=== PATIENT | male | born 1950 | race Caucasian/White ===

== ENCOUNTER 2018-03-28 09:34 | Outpatient (CLI) | payer OTHER ==
--- NOTE | 2018-03-28 11:20 | ULT ---
HEPATIC ULTRASOUND WITH DOPPLER: (paul scale, color flow, and spectral Doppler) History Elevated LFTs. FINDINGS: The liver demonstrates increased echogenicity concerning for fatty infiltration. No focal mass or in trahepatic ductal dilatation is seen. There are echogenic foci in the spleen consistent with granulo mas. The spleen measures 10 cm in length. The patient is post cholecystectomy. The common duct brianna sures 5 mm in diameter. The pancreas is not well visualized due to overlying bowel gas. No free flu id is seen. There is normal flow and spectral waveforms of the hepatic, portal, and splenic vasculature. IMPRESSION: 1. Fatty liver. 2. Splenic granulomas. 3. Status post cholecystectomy. POS: OFF
== END 2018-03-28 09:35 | disposition home or self-care (01) ==
LOC: BICULT 09:34
PROVIDERS: ATTEND Physician Assistant Medical
DX: R74.8 Abnormal levels of other serum enzymes (principal); K76.0 Fatty (change of) liver, not elsewhere classified; D73.89 Other diseases of spleen; Z90.49 Acquired absence of other specified parts of digestive tract
CPT/HCPCS: 76705

== ENCOUNTER 2018-11-12 13:11 | Outpatient (CLI) | payer MEDICARE ==
[2018-11-12 15:27] LABS: Hemoglobin 14.7 g/dL (14.0-18.0); Mean Corpuscular Hemoglobin 33.6 pg (27.0-31.0); Mean Corpuscular Volume 98.8 fL (78.0-98.0); Mean Platelet Volume 8.4 fL (7.4-10.4); Platelet Count 176 thou/uL (130-400); RBC Distribution Width 12.4 % (11.5-14.5); Red Blood Cell (RBC) Count 4.38 mill/uL (4.70-6.10); White Blood Cell (WBC) Count 8.1 thou/uL (4.8-10.8)
[2018-11-12 15:33] LABS: PTT 29.2 SEC (22.9-36.1); Prothrombin Time 13.1 SEC (12.0-14.7)
[2018-11-12 15:46] LABS: ALT (SGPT) 59 U/L (8-55); AST (SGOT) 58 U/L (5-34); Alkaline Phosphatase 75 U/L (40-150); Anion Gap 12 mmol/L (10-20); BUN (Urea Nitrogen) 18 mg/dL (8.4-25.7); Bilirubin, Total 0.6 mg/dL (0.2-1.2); Calc. Creatinine Clearance 0 mL/min (70-130); Calcium 9.8 mg/dL (7.8-10.44); Carbon Dioxide 26 mmol/L (23-31); Chloride 103 mmol/L (98-107); Estimated GFR-MDRD 71; Globulin 3.6 g/dL (2.4-3.5); Glucose 131 mg/dL (80-115); Potassium 3.7 mmol/L (3.5-5.1); Protein, Total 7.6 g/dL (5.8-8.1); Sodium 137 mmol/L (136-145)
== END 2018-11-12 13:12 | disposition home or self-care (01) ==
LOC: LABBT 13:11
PROVIDERS: ATTEND Internal Medicine Cardiovascular Disease
DX: Z01.818 Encounter for other preprocedural examination (principal); I20.9 Angina pectoris, unspecified
CPT/HCPCS: 80053; 85027; 85610; 85730; 93005; 93010

== ENCOUNTER 2018-11-18 05:41 | Inpatient (IN) | payer MEDICARE ==
[2018-11-18] MEDS ORDERED: Diazepam 5 MG TAB ONE (06:08)
[2018-11-18] MEDS ORDERED: Lidocaine 1% (PF) 30 ML VIAL ONE (06:37)
[2018-11-18] MEDS ORDERED: Fentanyl 100 MCG/2 ML VIAL ONE (07:12)
[2018-11-18] MEDS ORDERED: Midazolam HCl 2 mg/2 ml Vial ONE (07:12)
[2018-11-18] MEDS ORDERED: Finasteride 5 MG TAB PO SCH (09:00)
[2018-11-18] MEDS ORDERED: POTASSIUM 99 MG PO SCH (09:00)
[2018-11-18] MEDS ORDERED: predniSONE 5 MG TAB PO PRN (09:02)
[2018-11-18] MEDS ORDERED: Fluticasone Propionate Nasal Spray 16 gm Bottle NASAL PRN (09:06)
[2018-11-18] MEDS ORDERED: clonazePAM 0.5 MG TAB PO PRN (09:11)
[2018-11-18] MEDS ORDERED: SODIUM CHLORIDE 0.9% IVPB SCH (09:15)
[2018-11-18] MEDS ORDERED: INFLIXIMAB IVPB SCH (09:15)
[2018-11-18] MEDS ORDERED: Iopamidol 370 76% 100 ML VIAL ONE (10:00)
[2018-11-18] MEDS ORDERED: Diazepam 5 MG TAB PO PRN (10:38)
[2018-11-18] MEDS ORDERED: Communication Order-Pharmacy FS SCH (10:38)
--- NOTE | 2018-11-18 11:24 | RAD ---
Exam: Chest one view HISTORY:Preoperative assessment Comparison: 07/27/2006 FINDINGS: Lungs: Mild asymmetric opacity at the right apex.Cardiac silhouette:Accentuated by technique. Pulmonary vessels: Mild central prominence. Pleural Spaces: Clear Pneumothorax: None Osseous abnormalities: None of acuity. IMPRESSION: Mild asymmetric opacity at the right lung apex. Underlying parenchymal disease is not excluded. Recom mend follow-up with 2 view chest series. Mild prominence of central pulmonary vasculature. Correlate with fluid status.
--- NOTE | 2018-11-18 11:24 | CON ---
DATE OF CONSULTATION: 11/18/2018 HISTORY OF PRESENT ILLNESS: Mr. Avina is a 68-year-old gentleman, who was brought in for elective cardiac catheterization. He says he has had shortness of breath and subsequent chest pain with minimal activity recently. He had a stress test performed, which was positive and this led to cardiac catheterization today. Catheterization shows a 90% left main stenosis. His ejection fraction is preserved at approximately 70%. I have been asked to see him and discuss coronary artery bypass grafting. PAST MEDICAL HISTORY: 1. Ulcerative colitis - the patient takes Remicade and has had no recent flares. 2. Arthritis. 3. Hemochromatosis. 4. Coronary artery disease. 5. Hypertension. 6. Dyslipidemia. PAST SURGICAL HISTORY: As noted. ALLERGIES: PENICILLIN. SOCIAL HISTORY: He does not use tobacco. He is and retired. PHYSICAL EXAMINATION: VITAL SIGNS: Height is 6 feet, weight is 290 pounds. BSA is 2.59. Heart rate is 70 and regular. Blood pressure is 138/72. HEENT: Sclerae are nonicteric. Pupils are equal and round bilaterally. NECK: Supple without bruit. CHEST: Clear bilaterally. HEART: Rhythm is regular without murmur. ABDOMEN: Soft and nontender without mass. EXTREMITIES: No cyanosis, clubbing, or edema. VASCULAR: He has palpable carotid, radial, femoral, dorsalis pedis, and posterior tibial pulses bilaterally. VENOUS: There are no venous varicosities or venous stasis changes. PSYCHIATRIC: The patient is awake, alert, and oriented to person, place, and time. LABORATORY DATA: Of note, hemoglobin is 14.7, platelet count is 176,000. Potassium is 3.7, creatinine is 1.04. ASSESSMENT AND PLAN: This is a pleasant 68-year-old gentleman with left main stenosis. He has bypassable left anterior descending and two obtuse marginal branches. Risks, benefits, and options to coronary artery bypass grafting have been discussed in detail with he and his and they are agreeable to proceed tomorrow. Job ID: [id number]
[2018-11-18] MEDS ORDERED: Nitroglycerin 0.4 MG TAB (25 Tab Bottle) SL PRN (15:42)
[2018-11-18] MEDS ORDERED: Acetaminophen/Codeine 30-300mg Tablet PO PRN ×2 (15:42)
[2018-11-18] MEDS ORDERED: Sodium Chloride 0.9% 1,000 ML IV SCH (15:42)
[2018-11-18] MEDS ORDERED: Sodium Chloride 0.9% 200 ML IV PRN (15:42)
[2018-11-18] MEDS ORDERED: Simvastatin 5 MG TAB PO SCH (21:00)
[2018-11-18] MEDS ORDERED: Atenolol 25 MG TAB PO SCH (21:00)
[2018-11-18] MEDS: Finasteride 5 MG TAB PO SCH (21:10)
[2018-11-18] MEDS: sulfaSALAzine 500 MG TAB PO SCH (21:39)
[2018-11-19] MEDS: Levothyroxine 175 MCG TAB PO SCH (02:07)
[2018-11-19] MEDS ORDERED: Nitroglycerin 50 MG/250 ML BOT 250 ML ONE (06:21)
[2018-11-19] MEDS ORDERED: Norepinephrine 4 MG/4 ML VIAL ONE (06:21)
[2018-11-19] MEDS ORDERED: Fentanyl 250 MCG/5 ML VIAL ONE (06:22)
[2018-11-19] MEDS ORDERED: Albumin 5% 500 ML ONE (06:34)
[2018-11-19] MEDS ORDERED: Heparin 10,000 UNITS/1 ML VIAL 30,000 UNITS in Sodium Chloride 0.9% 1,000 ML FS SCH (07:00)
[2018-11-19] MEDS ORDERED: Midazolam HCl 2 mg/2 ml Vial ONE (07:05)
[2018-11-19] MEDS ORDERED: Adenosine 6 MG/2 ML VIAL ONE (07:05)
[2018-11-19] MEDS ORDERED: Levofloxacin 500 mg/D5W 100 ml Premix Bag ONE (07:19)
[2018-11-19] MEDS ORDERED: Clindamycin/D5W 900 mg/50 ml Premix Bag ONE (07:19)
[2018-11-19] MEDS ORDERED: Spironolactone 25 MG TAB PO SCH (08:00)
[2018-11-19] MEDS ORDERED: Hydrochlorothiazide 25 MG TAB PO SCH (09:00)
[2018-11-19] MEDS ORDERED: Loratadine 10 MG TAB PO SCH (09:00)
[2018-11-19] MEDS ORDERED: Multivit, Therapeutic 1 TAB PO SCH (09:00)
[2018-11-19] MEDS ORDERED: Losartan 25 MG TAB PO SCH (09:00)
[2018-11-19] MEDS ORDERED: Aspirin Chewable 81 MG TAB PO SCH (09:00)
[2018-11-19] MEDS ORDERED: Insulin Regular 300 UNITS/3 ML VIAL ONE (09:17)
[2018-11-19] MEDS ORDERED: Bupivacaine HCl 0.5%/Epinephrine 1:200,000/PF 30 ml Vial ONE (11:09)
[2018-11-19] MEDS ORDERED: Dexamethasone 4 mg/ml Vial ONE (11:09)
[2018-11-19] MEDS ORDERED: Propofol 500 MG/50 ML VIAL ONE (11:46)
[2018-11-19] MEDS ORDERED: Vecuronium 10 MG VIAL ONE (11:46)
[2018-11-19] MEDS ORDERED: Norepinephrine 8 MG/0.9% NS 250 ML IVPB PRN (12:39)
[2018-11-19] MEDS ORDERED: Guaifenesin DM 100-10/5 ML UDCUP PO PRN (12:39)
[2018-11-19] MEDS ORDERED: Ondansetron PF 4 MG/2 ML Vial IVP PRN (12:39)
[2018-11-19] MEDS ORDERED: Hetastarch 6% 500 ML 500 ML IVPB PRN (12:39)
[2018-11-19] MEDS ORDERED: Promethazine HCl 25 MG/ML VIAL IM PRN (12:39)
[2018-11-19] MEDS ORDERED: Mag-Al 1200 mg/1200 mg/30 ML UDCUP PO PRN (12:39)
[2018-11-19] MEDS ORDERED: Magnesium 2 GM/50 ML 2 GM in Premix Bag 1 BAG IVPB SCH (12:39)
[2018-11-19] MEDS ORDERED: Nitroglycerin 50 MG/250 ML BOT 250 ML IVPB PRN (12:39)
[2018-11-19] MEDS ORDERED: Acetaminophen 325 MG TAB PO PRN (12:39)
[2018-11-19] MEDS ORDERED: Bisacodyl 10 MG SUPP PR PRN (12:39)
[2018-11-19] MEDS ORDERED: Post-Op Insulin Drip Protocol IVPB ONE (12:39)
[2018-11-19] MEDS ORDERED: Bisacodyl 5 MG TAB PO PRN (12:39)
[2018-11-19] MEDS ORDERED: Fentanyl 100 MCG/2 ML VIAL SLOW IVP PRN (12:39)
[2018-11-19] MEDS ORDERED: hydrALAZINE 20 MG/ML VIAL SLOW IVP PRN (12:39)
[2018-11-19] MEDS ORDERED: D5 1/2 NS w/20 mEq KCL 1,000 ML IV SCH (12:39)
[2018-11-19] MEDS ORDERED: D5 1/2 NS w/20 mEq KCL 1,000 ML ONE (12:42)
[2018-11-19] MEDS ORDERED: Dextrose 50% Abboject 50 ML SYRINGE SLOW IVP PRN (12:44)
[2018-11-19] MEDS ORDERED: Dextrose 5% in Water 1,000 ML IV PRN (12:44)
[2018-11-19] MEDS ORDERED: Insulin Regular 300 UNITS/3 ML VIAL SC PRN (12:44)
[2018-11-19] MEDS ORDERED: HUMULIN R 100 UNITS in Sodium Chloride 0.9% 100 ML IVPB SCH (12:44)
[2018-11-19] MEDS: sulfaSALAzine 500 MG TAB PO SCH ×2 (12:52→21:15)
[2018-11-19 12:57] LABS: Actual Bicarbonate (HCO3a) 21.9 mEq/L (22-28); Base Excess (BEa) -2.6 mEq/L (-2.0 to +3.0); CO2 Tension 37.3 mmHg (35.0-45.0); Calcium, Ionized 1.09 mmol/L (1.12-1.30); Carboxyhemoglobin (COHb) 1.2 gm% (0.0-3.0); Hemoglobin (Hb) 13.4 g/dL (14.0-18.0); O2 Tension (PaO2) 109.1 mmHg (> 80.0); Potassium - ABG Lab 3.57 mmol/L (3.70-5.30); pH, Arterial 7.39 (7.35-7.45)
[2018-11-19 12:58] LABS: #Basophils 0.1 thou/uL (0.0-0.2); #Eosinphils 0.1 thou/uL (0.0-0.7); #Lymphocytes 1.5 thou/uL (1.20-3.40); #Monocytes 1.2 thou/uL (0.11-0.59); %Basophils 0.6 % (0.0-1.0); %Eosinophils 0.7 % (0.0-10.0); %Lymphocytes 11.4 % (21.0-51.0); %Monocytes 9.6 % (0.0-10.0); %Neutrophils 77.8 % (42.0-75.0); Hemoglobin 12.8 g/dL (14.0-18.0); Mean Corpuscular HGB CONC 36.3 g/dL (32.0-36.0); Mean Corpuscular Hemoglobin 35.3 pg (27.0-31.0); Mean Corpuscular Volume 97.4 fL (78.0-98.0); Mean Platelet Volume 8.3 fL (7.4-10.4); Platelet Count 141 thou/uL (130-400); Red Blood Cell (RBC) Count 3.64 mill/uL (4.70-6.10); White Blood Cell (WBC) Count 12.9 thou/uL (4.8-10.8)
[2018-11-19 13:00] LABS: INR-International Normal Ratio 1.3; PTT 30.4 SEC (22.9-36.1); Prothrombin Time 16.5 SEC (12.0-14.7)
[2018-11-19] MEDS: Clindamycin/D5W 900 MG in Premix Bag 1 BAG IVPB SCH ×3 (13:01→23:18)
[2018-11-19] MEDS: Ketorolac Tromethamine 30 MG/ML VIAL IVP SCH ×3 (13:01→23:16)
[2018-11-19 13:02] LABS: ALV-art Gradient 200.775 (0-20); Puncture Site LINE
[2018-11-19 13:12] LABS: Anion Gap 13 mmol/L (10-20); BUN (Urea Nitrogen) 15 mg/dL (8.4-25.7); Calc. Creatinine Clearance 138 mL/min (70-130); Calcium 8.5 mg/dL (7.8-10.44); Carbon Dioxide 22 mmol/L (23-31); Chloride 110 mmol/L (98-107); Estimated GFR-MDRD 81; Glucose 134 mg/dL (80-115); Potassium 3.5 mmol/L (3.5-5.1); Sodium 141 mmol/L (136-145)
[2018-11-19] MEDS ORDERED: Morphine 2 MG/ML SYRINGE SLOW IVP PRN (13:15)
[2018-11-19] MEDS: Potassium Chloride 20 MEQ/100 ML PREMIX BAG IVPB PRN (13:19)
--- NOTE | 2018-11-19 13:26 | RAD ---
Exam: Chest one view HISTORY:Status post open heart surgery Comparison: 11/18/2018 FINDINGS: Cardiac silhouette:Enlarged Lines and tubes: Right-sided subclavian central venous catheter terminates in the region of the right atrium. Endotracheal tube terminates just beyond the level of clavicles. There are 2 mediastinal drainage catheters. Sternotomy wires are noted Aorta: Atherosclerosis of the aortic knob Pulmonary vessels: Normal Costophrenic angles: Small left-sided pleural effusion. LUNGS: Bibasilar opacities, left greater than right likely due to atelectasis Pneumothorax: Left sided chest tube. No pneumothorax. Osseous abnormalities: None IMPRESSION: Findings compatible with recent open heart surgery.
[2018-11-19 16:03] VITALS: BMI 39.7
--- NOTE | 2018-11-19 16:16 | OP ---
DATE OF PROCEDURE: 11/19/2018 PREOPERATIVE DIAGNOSES: Coronary artery disease/obesity/hypertension/dyslipidemia/ulcerative colitis/hemochromatosis. POSTOPERATIVE DIAGNOSES: Coronary artery disease/obesity/hypertension/dyslipidemia/ulcerative colitis/hemochromatosis. PROCEDURES PERFORMED: Coronary artery bypass grafting x3. 1. Left internal mammary artery mid LAD - good conduit and target. 2. Reverse saphenous vein to 1.0 mm diagonal - good conduit and small target. 3. Reverse saphenous vein to 1.5 mm OM1 - good conduit and target. ANESTHESIA: General endotracheal - Dr. Scott Grayson. PUMP TIME: 58 minutes. CROSS-CLAMP TIME: 42 minutes. LOW CORE TEMPERATURE: 34 degrees Celsius. RESIDENTIAL BUILDER: Sunita Galarza. DRAINS: 24-Indonesian chest tube x2. DRIPS: Levophed at 5 mcg. TRANSFUSIONS: None. DESCRIPTION OF PROCEDURE: After operative consent was obtained, the patient was brought to the operating room, placed in supine position on the operating room table. Appropriate central line and monitors were placed and general endotracheal anesthesia was induced. Chest, abdomen, and legs were prepped and draped in usual sterile fashion. Greater saphenous vein was harvested from the left thigh utilizing endoscopic technique. Wound was irrigated and closed in layers. Median sternotomy was performed. Left internal mammary artery was harvested as a pedicle graft. The patient was systemically heparinized. Distal pedicle was divided and infused with papaverine. Thymic fat and pericardium were divided with electrocautery. Pericardial stay sutures were placed. Aortic and atrial cannulation was performed. After adequate heparinization, retrograde prime was performed and the patient was placed on cardiopulmonary bypass. Distal targets were marked. The aortic cross-clamp was applied and antegrade sanguinous cardioplegic arrest was obtained. 1 L of antegrade cold [place] cardioplegia was given. Topical cold solution was used. Reverse saphenous vein was anastomosed to the OM in end-to-side fashion with running 7-0 Prolene suture. Anastomosis was tested and was hemostatic. Reverse saphenous vein was anastomosed to the diagonal in end-to-side fashion with running 7-0 prolene suture. Anastomosis was tested and it was hemostatic. The mammary artery was brought through a window in the pericardium and anastomosed to the mid LAD in an end-to-side fashion with running 7-0 Prolene suture. On release of mammary clamps, good hooding of the anastomosis and good distal flow. Pedicle was secured with interrupted 6-0 Prolene suture. The saphenous vein to the OM was then anastomosed to a punch site in the aorta with running 6-0 Prolene suture. Cross-clamp was removed. The saphenous vein to the diagonal was anastomosed to the side wall of the OM graft. The grafts were de-aired and anastomoses were inspected for hemostasis. The patient was warmed and weaned from cardiopulmonary bypass. After resumption of sinus rhythm, good hemodynamics, temperature greater than 36.5, bypass was discontinued. Transfusions were given. Protamine was administered. Decannulation was performed and pursestring suture was secured. 24-Indonesian chest tubes were placed in the mediastinum. Vancomycin paste was placed on the sternal edges. Again, mediastinum was vigorously inspected for hemostasis. After adequate hemostasis had been obtained, sternum was closed with #7 wire, 3 in manubrium, 1 in the distal sternum, and 4 zip ties in the body of the sternum. The sternum was treated with platelet rich plasma, and wires were twisted and buried. Zip ties were tied and cut. Wounds were irrigated and treated with platelet-poor plasma, closed in multiple layers. Needle, sponge, and instrument counts were all reported correct at the end of the procedure. The patient tolerated the procedure well and was transferred to the intensive care unit in stable, but critical condition. Job ID: [id number]
[2018-11-19 18:07] LABS: Potassium 4.1 mmol/L (3.5-5.1)
[2018-11-19] MEDS ORDERED: Famotidine/PF 20 mg/2ml Vial SLOW IVP SCH (21:00)
[2018-11-19] MEDS: Finasteride 5 MG TAB PO SCH (21:06)
[2018-11-19] MEDS: Simvastatin 40 MG TAB PO SCH (21:06)
[2018-11-19] MEDS: Fentanyl 100 MCG/2 ML VIAL SLOW IVP PRN (22:51)
[2018-11-20] MEDS: Fentanyl 100 MCG/2 ML VIAL SLOW IVP PRN (03:52)
[2018-11-20 05:04] LABS: #Lymphocytes 1.3 thou/uL (1.20-3.40); #Monocytes 1.9 thou/uL (0.11-0.59); #Neutrophils 13.5 thou/uL (1.40-6.50); %Basophils 0.1 % (0.0-1.0); %Eosinophils 0.2 % (0.0-10.0); %Lymphocytes 7.8 % (21.0-51.0); %Monocytes 11.3 % (0.0-10.0); %Neutrophils 80.7 % (42.0-75.0); Hemoglobin 13.4 g/dL (14.0-18.0); Mean Corpuscular HGB CONC 35.2 g/dL (32.0-36.0); Mean Corpuscular Volume 99.5 fL (78.0-98.0); Platelet Count 163 thou/uL (130-400); RBC Distribution Width 12.2 % (11.5-14.5); Red Blood Cell (RBC) Count 3.82 mill/uL (4.70-6.10); White Blood Cell (WBC) Count 16.7 thou/uL (4.8-10.8)
[2018-11-20 05:18] LABS: Anion Gap 11 mmol/L (10-20); BUN (Urea Nitrogen) 20 mg/dL (8.4-25.7); Calc. Creatinine Clearance 112 mL/min (70-130); Calcium 8.4 mg/dL (7.8-10.44); Carbon Dioxide 25 mmol/L (23-31); Chloride 110 mmol/L (98-107); Estimated GFR-MDRD 62; Glucose 125 mg/dL (80-115); Potassium 3.5 mmol/L (3.5-5.1); Sodium 142 mmol/L (136-145)
[2018-11-20] MEDS: Ketorolac Tromethamine 30 MG/ML VIAL IVP SCH ×3 (05:22→18:28)
[2018-11-20] MEDS: Levothyroxine 175 MCG TAB PO SCH (05:23)
[2018-11-20] MEDS: Clindamycin/D5W 900 MG in Premix Bag 1 BAG IVPB SCH (05:24)
[2018-11-20] MEDS: Potassium Chloride 20 MEQ/100 ML PREMIX BAG IVPB PRN (05:47)
--- NOTE | 2018-11-20 06:27 | RAD ---
CHEST ONE VIEW: INDICATIONS: Status post open heart surgery. COMPARISON: 11/19/2018 FINDINGS: The patient has been intervally extubated. The right subclavian central venous catheter is stable. Cardiomegaly with pulmonary vascular congestion appear similar appearing. Right subclavian central v enous catheter is stable. Small left pleural effusions persist. Left-sided thoracostomy tube is unc hanged. No pneumothorax is evident. IMPRESSION: Interval extubation. Otherwise stable examination. POS: BH
[2018-11-20] MEDS ORDERED: HYDROcodone/Acetaminophen 5/325 mg Tablet PO PRN (06:34)
[2018-11-20] MEDS ORDERED: Levofloxacin 500 mg/D5W 750 MG in Premix Bag 1 BAG IVPB SCH (07:00)
[2018-11-20] MEDS: HYDROcodone/Acetaminophen 5/325 mg Tablet PO PRN (07:17)
[2018-11-20] MEDS ORDERED: Atenolol 25 MG TAB PO SCH (09:00)
[2018-11-20] MEDS: Aspirin 325 MG TAB PO SCH (09:25)
[2018-11-20] MEDS: Magnesium 2 GM/50 ML 2 GM in Premix Bag 1 BAG IVPB SCH (09:26)
[2018-11-20] MEDS: sulfaSALAzine 500 MG TAB PO SCH ×2 (09:26→22:28)
[2018-11-20 09:30] LABS: Actual Bicarbonate (HCO3a) 19.3 mEq/L (22-28); Base Excess (BEa) -3.5 mEq/L (-2.0 to +3.0); CO2 Tension 28.3 mmHg (35.0-45.0); Calcium, Ionized 1.01 mmol/L (1.12-1.30); Carboxyhemoglobin (COHb) 0.9 gm% (0.0-3.0); Hemoglobin (Hb) 11.7 g/dL (14.0-18.0); O2 Tension (PaO2) 231.5 mmHg (> 80.0); Potassium - ABG Lab 3.46 mmol/L (3.70-5.30); Puncture Site ALINE; pH, Arterial 7.45 (7.35-7.45)
[2018-11-20 09:44] LABS: Actual Bicarbonate (HCO3a) 20.9 mEq/L (22-28); Analyzer IN Cardio OR; Base Excess (BEa) -2.2 mEq/L (-2.0 to +3.0); CO2 Tension 30.5 mmHg (35.0-45.0); Calcium, Ionized 1.02 mmol/L (1.12-1.30); Carboxyhemoglobin (COHb) 0.8 gm% (0.0-3.0); Hemoglobin (Hb) 11.7 g/dL (14.0-18.0); Potassium - ABG Lab 4.51 mmol/L (3.70-5.30); pH, Arterial 7.45 (7.35-7.45)
[2018-11-20 09:44] LABS: Actual Bicarbonate (HCO3a) 20.6 mEq/L (22-28); Analyzer IN Cardio OR; Base Excess (BEa) -3.2 mEq/L (-2.0 to +3.0); CO2 Tension 33.3 mmHg (35.0-45.0); Calcium, Ionized 1.07 mmol/L (1.12-1.30); O2 Tension (PaO2) 421.7 mmHg (> 80.0); Potassium - ABG Lab 4.13 mmol/L (3.70-5.30); pH, Arterial 7.41 (7.35-7.45)
[2018-11-20 09:45] LABS: Analyzer IN Cardio OR; Base Excess (BEa) -3.4 mEq/L (-2.0 to +3.0); CO2 Tension 35.5 mmHg (35.0-45.0); Calcium, Ionized 1.02 mmol/L (1.12-1.30); Carboxyhemoglobin (COHb) 0.8 gm% (0.0-3.0); Hemoglobin (Hb) 10.9 g/dL (14.0-18.0); O2 Tension (PaO2) 356.8 mmHg (> 80.0); Potassium - ABG Lab 4.34 mmol/L (3.70-5.30); pH, Arterial 7.39 (7.35-7.45)
[2018-11-20 09:45] LABS: Actual Bicarbonate (HCO3a) 19.8 mEq/L (22-28); Analyzer IN Cardio OR; Base Excess (BEa) -3.2 mEq/L (-2.0 to +3.0); Calcium, Ionized 1.14 mmol/L (1.12-1.30); Carboxyhemoglobin (COHb) 0.3 gm% (0.0-3.0); Hemoglobin (Hb) 10.9 g/dL (14.0-18.0); O2 Tension (PaO2) 287.7 mmHg (> 80.0); Potassium - ABG Lab 3.46 mmol/L (3.70-5.30); pH, Arterial 7.45 (7.35-7.45)
[2018-11-20 09:48] LABS: Puncture Site ALINE
[2018-11-20 09:48] LABS: Puncture Site ALINE
[2018-11-20 09:49] LABS: Puncture Site ALINE
[2018-11-20 09:49] LABS: Puncture Site ALINE
--- NOTE | 2018-11-20 10:49 | CON ---
DATE OF CONSULTATION: 11/20/2018 SERVICE: Pulmonary Medicine. HISTORY OF PRESENT ILLNESS: The patient is a 68-year-old white male with past medical history significant for coronary artery disease. This was identified on a left heart catheterization. He had multivessel disease and ultimately, it was decided that he would do best with a coronary artery bypass graft. He is currently postop day #1 from that procedure. The chest tubes have already been removed. He is not having any difficulties with breathing. He has appropriate chest discomfort currently. He denies any nausea or vomiting. His appetite is starting to grain picker. He has yet to have any bowel movements, but he has passed a little bit of gas. Sanford catheter remains in place. Otherwise, he is actually doing quite well in the immediate postop period. PAST MEDICAL HISTORY: 1. Coronary artery disease. 2. Hypertension. 3. Dyslipidemia. 4. Hemochromatosis. 5. Ulcerative colitis. 6. Osteoarthritis. PAST SURGICAL HISTORY: 1. Cardiac catheterization. 2. Coronary artery bypass graft x3 vessels. SOCIAL HISTORY: Negative for alcohol, tobacco, or illicit drug use currently. He is . He is retired. He has no exposure to chemicals, dust, asbestos, or tuberculosis. FAMILY HISTORY: Noncontributory. ALLERGIES: PENICILLIN. MEDICATIONS: List of his inpatient medications was reviewed. No specific updates were made at this time. REVIEW OF SYSTEMS: General; head, ears, eyes, nose, throat; cardiovascular; respiratory; GI; ; musculoskeletal; neurologic; and skin are negative except as mentioned in the HPI. PHYSICAL EXAMINATION: VITAL SIGNS: Afebrile, pulse 75, respirations 14, saturation 92% on room air. Blood pressure 129/45. HEENT: Normocephalic and atraumatic. Sclerae white. Conjunctivae pink. Oral mucosa is moist without lesions. LUNGS: Decent air entry. There is no prolonged expiratory phase or wheezing present. HEART: Normal rate. Regular. ABDOMEN: Soft, nontender, and nondistended. Bowel sounds are positive. MUSCULOSKELETAL: No cyanosis or clubbing. There is trace pitting in the bilateral lower extremities. NEUROLOGIC: Grossly nonfocal. LABORATORY DATA: WBC 16.7, hemoglobin 13.4 and stable, and platelets 163,000. INR 1.3. A pH 7.39, pCO2 of 37, pO2 of 109. Basic metabolic profile is completely unremarkable. His creatinine is gently up trending to 1.17. Potassium 3.5. IMAGING: Chest x-ray demonstrates sternotomy wires are present. There is a right-sided subclavian central venous catheter in good position. I cannot see the left base. Thoracostomy tube and mediastinal drain are noted. ASSESSMENT: 1. Acute hypoxic respiratory failure, resolved. 2. Coronary artery disease, status post coronary artery bypass graft, postop day #1. 3. Obstructive sleep apnea. 4. Hypokalemia. DISCUSSION AND PLAN: I will give the patient a dose of potassium. We will continue his CPAP at 14 cm of water pressure. His residual AHI is extremely low at 0.5. When he leaves the ICU, he will have no further requirements for inpatient Pulmonary/Critical Care opinion, and I will sign off. I have encouraged mobilization and trained him in pulmonary toilet maneuvers. 70 minutes have been devoted to this patient in various activities. I personally reviewed all imaging studies and laboratory data noted within this document. For fifty percent of this time, I was interacting with the patient at the bedside or coordinating care with the care team. For the remainder of the time I was immediately available to the patient in the hospital unit. Job ID: [id number] MTDD
[2018-11-20] MEDS ORDERED: Aminocaproic Acid 5 GM/20 ML VIAL ONE (17:15)
[2018-11-20] MEDS ORDERED: Vecuronium 10 MG VIAL ONE (17:15)
[2018-11-20] MEDS ORDERED: Protamine Sulfate 250 MG/25 ML VIAL ONE (17:15)
[2018-11-20] MEDS ORDERED: Heparin 5,000 UNITS/ML VIAL ONE (17:15)
[2018-11-20] MEDS ORDERED: Succinylcholine Chloride 20 MG/ML 10 ml SYRINGE FS ONE (17:15)
[2018-11-20] MEDS ORDERED: Ondansetron PF 4 MG/2 ML Vial ONE (17:15)
[2018-11-20] MEDS ORDERED: Rocuronium Bromide 10 MG/ML (10ML VIAL) ONE (17:15)
[2018-11-20] MEDS ORDERED: Heparin 30,000 units/30 ml VIAL ONE (17:15)
[2018-11-20] MEDS ORDERED: Thrombin 5000 UNITS/5 ML VIAL ONE (17:15)
[2018-11-20] MEDS ORDERED: PROPOFOL 200 MG/20 ML VIAL ONE (17:15)
[2018-11-20] MEDS ORDERED: Mannitol 12.5 GM/50 ML ONE (17:15)
[2018-11-20] MEDS ORDERED: Papaverine 60 MG/2 ML VIAL ONE (17:15)
[2018-11-20] MEDS ORDERED: Sodium Bicarb 50 MEQ/50 ML VIAL ONE (17:15)
[2018-11-20] MEDS ORDERED: Cardioplegic Soln 1,000 ML BAG ONE (17:15)
[2018-11-20] MEDS ORDERED: Potassium Chloride 60 MEQ/30 ML VIAL ONE (17:15)
[2018-11-20] MEDS ORDERED: Magnesium 5 GM/10 ML VIAL ONE (17:15)
[2018-11-20] MEDS ORDERED: Calcium Chloride 1 GM/10 ML Abboject SYRINGE ONE (17:15)
--- NOTE | 2018-11-20 18:33 | PRG ---
DATE OF SERVICE: 11/20/2018 HISTORY OF PRESENT ILLNESS: Mr. Avina is doing very well. No current complaints. He is status post bypass surgery. He has been extubated. OBJECTIVE: VITAL SIGNS: Blood pressure 141/49, pulse 78, temperature afebrile. LUNGS: Clear to auscultation. HEART: Regular rate and rhythm. ABDOMEN: Soft, nontender, and nondistended. EXTREMITIES: No edema. PERTINENT LABORATORY DATA: Hemoglobin 13.4. Creatinine 1.17. IMPRESSION: 1. Coronary artery disease. 2. Status post bypass surgery. RECOMMENDATIONS: Mr. Avina is doing well. Continue current therapy. We would recommend incentive spirometry and physical therapy. He is currently on aspirin in addition to atenolol. He is also on Zocor. Job ID: [id number]
[2018-11-20] MEDS: Amiodarone 450 MG in Dextrose 5% in Water 250 ML IVPB SCH (19:54)
[2018-11-20] MEDS: Simvastatin 40 MG TAB PO SCH (21:38)
[2018-11-20] MEDS: Finasteride 5 MG TAB PO SCH (21:38)
[2018-11-20] MEDS ORDERED: Metoprolol Tartrate 5 MG/5 ML VIAL IVP SCH (22:15)
[2018-11-21] MEDS: Ketorolac Tromethamine 30 MG/ML VIAL IVP SCH ×5 (00:26→23:50)
[2018-11-21] MEDS: Amiodarone 450 MG in Dextrose 5% in Water 250 ML IVPB SCH (03:58)
[2018-11-21 05:02] LABS: #Basophils 0.1 thou/uL (0.0-0.2); #Lymphocytes 2.6 thou/uL (1.20-3.40); #Monocytes 1.6 thou/uL (0.11-0.59); #Neutrophils 9.9 thou/uL (1.40-6.50); %Basophils 0.6 % (0.0-1.0); %Eosinophils 0.2 % (0.0-10.0); %Monocytes 11.6 % (0.0-10.0); %Neutrophils 69.7 % (42.0-75.0); Hemoglobin 13.3 g/dL (14.0-18.0); Mean Corpuscular HGB CONC 33.3 g/dL (32.0-36.0); Mean Corpuscular Hemoglobin 33.7 pg (27.0-31.0); Mean Platelet Volume 8.3 fL (7.4-10.4); Platelet Count 180 thou/uL (130-400); RBC Distribution Width 12.5 % (11.5-14.5); Red Blood Cell (RBC) Count 3.94 mill/uL (4.70-6.10); White Blood Cell (WBC) Count 14.2 thou/uL (4.8-10.8)
[2018-11-21 05:23] LABS: Anion Gap 14 mmol/L (10-20); BUN (Urea Nitrogen) 24 mg/dL (8.4-25.7); Calc. Creatinine Clearance 106 mL/min (70-130); Calcium 8.5 mg/dL (7.8-10.44); Carbon Dioxide 23 mmol/L (23-31); Chloride 105 mmol/L (98-107); Estimated GFR-MDRD 57; Glucose 181 mg/dL (80-115); Potassium 3.7 mmol/L (3.5-5.1); Sodium 138 mmol/L (136-145)
[2018-11-21] MEDS: Levothyroxine 175 MCG TAB PO SCH (06:27)
[2018-11-21] MEDS: Potassium Chloride 20 MEQ/100 ML PREMIX BAG IVPB PRN (06:28)
--- NOTE | 2018-11-21 07:43 | RAD ---
CHEST 1 VIEW: INDICATION: Status post open heart surgery. COMPARISON: Prior exam dated 11/20/2018. FINDINGS: Left-sided thoracostomy tube has been removed. Mild cardiomegaly persists. Pulmonary vascular conge stion has improved. Right subclavian central venous catheter is stable. No consolidation, pleural e ffusion, or pneumothorax is evident. IMPRESSION: 1. Interval removal of left sided thoracostomy tube. No pneumothorax. 2. Improved pulmonary vascular congestion. Stable cardiomegaly. 3. Stable right subclavian central venous catheter. POS: BH
[2018-11-21] MEDS: Magnesium 2 GM/50 ML 2 GM in Premix Bag 1 BAG IVPB SCH (08:55)
[2018-11-21] MEDS: Atenolol 50 MG TAB PO SCH (08:56)
[2018-11-21] MEDS: Aspirin 325 MG TAB PO SCH (08:56)
[2018-11-21] MEDS ORDERED: Potassium Chloride 20 MEQ TAB PO SCH (09:30)
[2018-11-21] MEDS: sulfaSALAzine 500 MG TAB PO SCH ×2 (09:41→20:44)
[2018-11-21] MEDS: HYDROcodone/Acetaminophen 5/325 mg Tablet PO PRN ×2 (09:45→16:24)
--- NOTE | 2018-11-21 10:06 | PRG ---
DATE OF SERVICE: 11/21/2018 SERVICE: Pulmonary Medicine. INTERVAL HISTORY: The patient is doing really well from breathing standpoint. No complaints of discomfort, nausea, or vomiting. He had increasing shortness of breath last night associated with an episode of atrial fibrillation with RVR. He was in the process of getting rate control. He denies any current chest discomfort, nausea, or vomiting. He is coughing a little bit, but not bringing up phlegm. There are no overnight fevers. PHYSICAL EXAMINATION: VITAL SIGNS: Afebrile currently. T-max 99.1. Pulse 133, blood pressure 122/48, respirations 26, and saturation 94% on 2 L nasal cannula. HEENT: Normocephalic and atraumatic. Sclerae white. Conjunctivae pink. Oral mucosa is moist without lesions. LUNGS: Decent air entry. Dependent crackles are minimal. There is no prolonged expiratory phase or wheezing appreciated. HEART: Normal rate and regular. ABDOMEN: Soft, nontender, and nondistended. Bowel sounds are positive. MUSCULOSKELETAL: No cyanosis or clubbing. There is trace pitting in the bilateral lower extremities. NEUROLOGIC: Grossly nonfocal. LABORATORY DATA: WBC 14.2, hemoglobin 13.3, platelets 180,000. INR 1.3. A pH 7.39, pCO2 of 37, pO2 of 109. Basic metabolic profile is essentially unremarkable except for potassium of 3.7. IMAGING: Chest x-ray demonstrates interval removal of the left-sided thoracostomy tube. No pneumothorax is present. Pulmonary vascular congestion is actually better. Right subclavian central venous catheter terminates in good position. Cardiomegaly is evident. I cannot exclude the possibility of a left pleural parenchymal disease. ASSESSMENT: 1. Acute hypoxic respiratory failure. 2. Coronary artery disease, status post coronary artery bypass graft x3 vessels, postoperative day #2. 3. Atrial fibrillation. 4. Obstructive sleep apnea. DISCUSSION AND PLAN: I once again replace the potassium. I will add the magnesium onto this morning's laboratories. If they are low, we will need to replace that as well. Pulmonary will follow along in this location, but when he lands on the floor, he will have no further requirements per my opinion, and I will sign off. Please call with additional questions or concerns through time. Job ID: [id number]
[2018-11-21] MEDS ORDERED: Digoxin 0.5 MG/2 ML AMP SLOW IVP SCH (12:00)
[2018-11-21] MEDS ORDERED: Diltiazem 125 MG in Sodium Chloride 0.9% 100 ML IVPB SCH (12:00)
--- NOTE | 2018-11-21 12:36 | PRG ---
DATE OF SERVICE: 11/21/2018 SUBJECTIVE: Mr. Avina developed atrial fibrillation last evening. He placed on IV amiodarone. Blood pressure has been 100 systolic. He feels washed out, but no other symptoms present. OBJECTIVE: VITAL SIGNS: Blood pressure 109/57, pulse 133, respirations 20. LUNGS: Clear to auscultation. HEART: Irregularly irregular. ABDOMEN: Soft, nontender, nondistended. EXTREMITIES: No edema. PERTINENT LABORATORY DATA: Hemoglobin 13.3, creatinine 1.26. IMPRESSION: 1. Postop atrial fibrillation. 2. Coronary artery disease. 3. Status post bypass surgery. RECOMMENDATIONS: 1. Add IV Cardizem. 2. Add IV digoxin. 3. Normal saline 500 mL bolus. 4. Continue amiodarone. Job ID: [id number]
[2018-11-21] MEDS: Simvastatin 40 MG TAB PO SCH (20:47)
[2018-11-21] MEDS: Finasteride 5 MG TAB PO SCH (20:47)
[2018-11-22 04:33] LABS: #Basophils 0.1 thou/uL (0.0-0.2); #Eosinphils 0.2 thou/uL (0.0-0.7); #Lymphocytes 2.7 thou/uL (1.20-3.40); #Monocytes 0.9 thou/uL (0.11-0.59); #Neutrophils 5.1 thou/uL (1.40-6.50); %Basophils 0.8 % (0.0-1.0); %Eosinophils 2.4 % (0.0-10.0); %Lymphocytes 29.9 % (21.0-51.0); %Neutrophils 56.8 % (42.0-75.0); Hemoglobin 11.6 g/dL (14.0-18.0); Mean Corpuscular HGB CONC 34.7 g/dL (32.0-36.0); Mean Platelet Volume 8.5 fL (7.4-10.4); Platelet Count 149 thou/uL (130-400); RBC Distribution Width 12.3 % (11.5-14.5); Red Blood Cell (RBC) Count 3.31 mill/uL (4.70-6.10)
[2018-11-22 04:49] LABS: Anion Gap 9 mmol/L (10-20); BUN (Urea Nitrogen) 30 mg/dL (8.4-25.7); Calc. Creatinine Clearance 125 mL/min (70-130); Calcium 8.1 mg/dL (7.8-10.44); Carbon Dioxide 25 mmol/L (23-31); Chloride 107 mmol/L (98-107); Estimated GFR-MDRD 69; Glucose 96 mg/dL (80-115); Sodium 137 mmol/L (136-145)
[2018-11-22] MEDS: Ketorolac Tromethamine 30 MG/ML VIAL IVP SCH ×2 (05:43→11:41)
[2018-11-22] MEDS: Levothyroxine 175 MCG TAB PO SCH (05:44)
[2018-11-22] MEDS: Potassium Chloride 20 MEQ/100 ML PREMIX BAG IVPB PRN (05:44)
[2018-11-22] MEDS ORDERED: Guaifenesin DM 100-10/5 ML UDCUP PO PRN (07:16)
[2018-11-22] MEDS ORDERED: diphenhydrAMINE 25 MG CAP PO PRN (07:16)
[2018-11-22] MEDS ORDERED: Artificial Tears 18 DROP/0.9 ML EA EYE PRN (07:16)
[2018-11-22] MEDS ORDERED: Furosemide 40 MG TAB PO SCH (07:16)
[2018-11-22] MEDS ORDERED: Bisacodyl 5 MG TAB PO PRN (07:16)
[2018-11-22] MEDS ORDERED: Mag-Al 1200 mg/1200 mg/30 ML UDCUP PO PRN (07:16)
[2018-11-22] MEDS ORDERED: Mineral Oil ENEMA PR PRN (07:16)
[2018-11-22] MEDS ORDERED: Nitroglycerin 0.4 MG TAB (25 Tab Bottle) SL PRN (07:16)
[2018-11-22] MEDS ORDERED: Zolpidem Tartrate 5 MG TAB PO PRN (07:16)
[2018-11-22] MEDS ORDERED: Bisacodyl 10 MG SUPP PR PRN (07:16)
--- NOTE | 2018-11-22 07:55 | RAD ---
Frontal radiograph chest: 11/22/2018 COMPARISON: 11/21/2018 HISTORY: Evaluate chest following open heart surgery FINDINGS: Stable right vascular catheter in midline sternotomy wires. No pneumothorax evident. Right lung is clear. Nonspecific mild hazy density involves the right base suggesting a combination of small volume right pleural fluid and nonspecific pulmonary parenchymal opacity within the left lower lobe IMPRESSION: Nonspecific mild pleural and parenchymal opacity in the left base.
[2018-11-22] MEDS ORDERED: Aspirin 325 mg Enteric Coated Tablet PO SCH (09:00)
[2018-11-22] MEDS: Potassium Chloride 10 MEQ TAB PO SCH (09:04)
[2018-11-22] MEDS: sulfaSALAzine 500 MG TAB PO SCH ×2 (09:05→20:57)
[2018-11-22] MEDS: Atenolol 50 MG TAB PO SCH (10:31)
[2018-11-22] MEDS ORDERED: Atenolol 25 MG TAB PO SCH (12:00)
[2018-11-22] MEDS ORDERED: Atenolol 50 MG TAB PO SCH (12:00)
--- NOTE | 2018-11-22 15:02 | PRG ---
DATE OF SERVICE: 11/22/2018 SERVICE: Pulmonary Medicine. INTERVAL HISTORY: The patient is doing fine from respiratory standpoint. He converted back into sinus rhythm. He has no difficulties with his breathing. He is not having any chest discomfort, fevers, or chills. There are no significant overnight events. PHYSICAL EXAMINATION: VITAL SIGNS: Afebrile; pulse 64; blood pressure 163/68; respirations 23; and saturation 96%, currently on room air. GENERAL: The patient is awake and alert, in no apparent distress. LUNGS: Excellent air entry. No prolonged expiratory phase is present. Minimal dependent crackles are noted. HEART: Normal rate. Regular. ABDOMEN: Soft, nontender, and nondistended. Bowel sounds are positive. MUSCULOSKELETAL: No cyanosis or clubbing. No pitting in bilateral lower extremities. NEUROLOGIC: Grossly nonfocal. LABORATORY DATA: WBC 9.0, hemoglobin 11.6, and platelets 149,000. BUN 30, creatinine is improved to 1.06. Basic metabolic profile is otherwise unremarkable. IMAGING DATA: Chest x-ray demonstrates left basilar pleural parenchymal change. Sternotomy wires are present, there was a subclavian catheter in good position. ASSESSMENT: 1. Acute hypoxic respiratory failure, resolved. 2. Coronary artery disease, status post coronary artery bypass graft x3 vessels. 3. Atrial fibrillation, postop. 4. Obstructive sleep apnea. DISCUSSION AND PLAN: The patient is doing fine from respiratory standpoint. At this point, he is stable for transition to the telemetry unit. When he arrives on the floor, he will have no further requirements for inpatient Pulmonary/Critical Care opinion , and I will sign off. Please call with additional questions or concerns through time. Job ID: [id number] [facility]
[2018-11-22] MEDS: Finasteride 5 MG TAB PO SCH (20:57)
[2018-11-22] MEDS ORDERED: Atorvastatin Calcium 40 MG TAB PO SCH (21:00)
[2018-11-23 04:16] VITALS: TEMP 98.4
[2018-11-23] MEDS: Levothyroxine 175 MCG TAB PO SCH (05:12)
[2018-11-23] MEDS: Potassium Chloride 10 MEQ TAB PO SCH (08:00)
[2018-11-23] MEDS: Aspirin 325 MG TAB PO SCH (08:03)
[2018-11-23] MEDS ORDERED: Atenolol 25 MG TAB PO SCH (09:00)
[2018-11-23 12:17] VITALS: BP 132/72
--- NOTE | 2018-11-24 04:53 | DIS ---
DATE OF ADMISSION: 11/18/2018 DATE OF DISCHARGE: 11/23/2018 PRINCIPAL DIAGNOSIS: Left main coronary artery disease. PROCEDURES PERFORMED: Cardiac catheterization on 11/18/2018, coronary artery bypass grafting x3 with left internal mammary artery to the LAD and reverse greater saphenous vein graft from the aorta to the diagonal and 1st obtuse marginal on 11/19/2018. HISTORY OF PRESENT ILLNESS AND HOSPITAL COURSE: The patient is a 68-year-old man with dyspnea on minimal exertion that was also associated with some chest discomfort, he had an abnormal stress test prompting cardiac catheterization that showed a high-grade left main lesion, and he was admitted to the hospital on the following day, underwent surgical revascularization. He was extubated and doing well by early on postoperative day #1. He was started on diet and beta blockade. That evening, he went into atrial fibrillation, but converted on amiodarone. His atenolol was increased, although transfer orders were written on postoperative day #3. Bed availability precluded actual transfer. Today on postoperative day #4, he remains in the sinus rhythm around 70 with blood pressures mostly in the 120 to 140 over 50 to 60 range. He is being discharged home now on adult aspirin and to resume his Tenormin 25 mg a day, statin. He has been written a prescription for [place] as needed for pain. Job ID: [id number]
== END 2018-11-23 11:21 | disposition home or self-care (01) | DRG 233 ==
LOC: CCL 05:41 → 2NO 15:05 → CCU 11-19 09:14
PROVIDERS: ADMIT Internal Medicine Cardiovascular Disease; ATTEND Internal Medicine Cardiovascular Disease
PROC: 4A023N7 Measurement of Cardiac Sampling and Pressure, Left Heart, Percutaneous Approach (ICD-10-PCS; principal; 2018-11-18)
PROC: B2111ZZ Fluoroscopy of Multiple Coronary Arteries using Low Osmolar Contrast (ICD-10-PCS; 2018-11-18)
PROC: B2151ZZ Fluoroscopy of Left Heart using Low Osmolar Contrast (ICD-10-PCS; 2018-11-18)
PROC: 02100Z9 Bypass Coronary Artery, One Artery from Left Internal Mammary, Open Approach (ICD-10-PCS; 2018-11-19)
PROC: 021109W Bypass Coronary Artery, Two Arteries from Aorta with Autologous Venous Tissue, Open Approach (ICD-10-PCS; 2018-11-19)
PROC: 06BQ4ZZ Excision of Left Saphenous Vein, Percutaneous Endoscopic Approach (ICD-10-PCS; 2018-11-19)
PROC: 5A1221Z Performance of Cardiac Output, Continuous (ICD-10-PCS; 2018-11-19)
DX: I25.110 Atherosclerotic heart disease of native coronary artery with unstable angina pectoris (principal); J96.01 Acute respiratory failure with hypoxia; K51.90 Ulcerative colitis, unspecified, without complications; I97.190 Other postprocedural cardiac functional disturbances following cardiac surgery; Z68.41 Body mass index [BMI] 40.0-44.9, adult; M19.91 Primary osteoarthritis, unspecified site; I10 Essential (primary) hypertension; E78.5 Hyperlipidemia, unspecified; G47.33 Obstructive sleep apnea (adult) (pediatric); E66.9 Obesity, unspecified; E83.119 Hemochromatosis, unspecified; E87.6 Hypokalemia; Z88.0 Allergy status to penicillin; Z90.49 Acquired absence of other specified parts of digestive tract; Z79.82 Long term (current) use of aspirin; Z79.899 Other long term (current) drug therapy
CPT/HCPCS: 36415; 36416; 36430; 71045; 76942; 80048; 82805; 83735; 85025; 85610; 85730; 86850; 86900; 86901; 93005; 93010; 93458; 93798; 94002; 94150; 94640; 99152; C1760; C1769; J0153; J0282; J0670; J1100; J1642; J1644; J1815; J1885; J1956; J2001; J2150; J2250; J2270; J2405; J2440; J2704; J2720; J3010; J3370; J3475; J3480; J3490; J7050; J7070; J7620; P9045; Q9967; S0017; S0028

== ENCOUNTER 2018-11-28 06:53 | Observation (INO) | payer MEDICARE ==
[2018-11-28 07:21] LABS: #Basophils 0.1 thou/uL (0.0-0.2); #Eosinphils 0.2 thou/uL (0.0-0.7); #Lymphocytes 2.3 thou/uL (1.20-3.40); #Monocytes 1.1 thou/uL (0.11-0.59); #Neutrophils 6.2 thou/uL (1.40-6.50); %Basophils 0.7 % (0.0-1.0); %Lymphocytes 23.2 % (21.0-51.0); %Neutrophils 63.2 % (42.0-75.0); Hemoglobin 15.2 g/dL (14.0-18.0); Mean Corpuscular HGB CONC 34.2 g/dL (32.0-36.0); Mean Corpuscular Hemoglobin 33.6 pg (27.0-31.0); Mean Corpuscular Volume 98.3 fL (78.0-98.0); Mean Platelet Volume 7.8 fL (7.4-10.4); Platelet Count 283 thou/uL (130-400); RBC Distribution Width 12.3 % (11.5-14.5); Red Blood Cell (RBC) Count 4.54 mill/uL (4.70-6.10); White Blood Cell (WBC) Count 9.8 thou/uL (4.8-10.8)
[2018-11-28 07:45] LABS: ALT (SGPT) 41 U/L (8-55); AST (SGOT) 56 U/L (5-34); Albumin 3.9 g/dL (3.4-4.8); Alkaline Phosphatase 62 U/L (40-150); Anion Gap 17 mmol/L (10-20); BUN (Urea Nitrogen) 13 mg/dL (8.4-25.7); Bilirubin, Total 0.9 mg/dL (0.2-1.2); CK (CPK) 72 U/L (30-200); Calc. Creatinine Clearance 0 mL/min (70-130); Calcium 9.7 mg/dL (7.8-10.44); Carbon Dioxide 21 mmol/L (23-31); Chloride 102 mmol/L (98-107); Estimated GFR-MDRD 67; Globulin 4.6 g/dL (2.4-3.5); Glucose 123 mg/dL (80-115); Potassium 4.9 mmol/L (3.5-5.1); Protein, Total 8.5 g/dL (5.8-8.1); Sodium 135 mmol/L (136-145)
--- NOTE | 2018-11-28 07:52 | RAD ---
XR Chest 1 View Portable HISTORY: Palpitations COMPARISON: 11/22/2018 FINDINGS: There are changes of median sternotomy. The heart size is normal. The lungs are well expand ed without focal areas of consolidation, pneumothorax or pleural effusions. IMPRESSION: No radiographic evidence of acute cardiopulmonary process.
[2018-11-28 08:03] LABS: CKMB 1.3 ng/mL (0-6.6)
[2018-11-28] MEDS ORDERED: Diltiazem 125 MG in Sodium Chloride 0.9% 100 ML IVPB SCH (08:45)
[2018-11-28] MEDS ORDERED: Digoxin 0.5 MG/2 ML AMP ONE (11:25)
[2018-11-28 13:09] LABS: CKMB 1.7 ng/mL (0-6.6)
[2018-11-28] MEDS ORDERED: Ondansetron PF 4 MG/2 ML Vial IVP PRN (13:37)
[2018-11-28] MEDS ORDERED: Acetaminophen 325 MG TAB PO PRN (13:37)
[2018-11-28] MEDS ORDERED: HYDROcodone/Acetaminophen 5/325 mg Tablet PO PRN ×2 (13:37)
[2018-11-28] MEDS ORDERED: Ondansetron ODT 4 MG TAB PO PRN (13:37)
[2018-11-28] MEDS ORDERED: clonazePAM 0.5 MG TAB PO PRN (13:42)
[2018-11-28] MEDS ORDERED: Enoxaparin Sodium 80 MG/0.8 ML SYRINGE SC SCH (14:00)
[2018-11-28 14:51] VITALS: BMI 38.5
[2018-11-28] MEDS ORDERED: Enoxaparin Sodium 30 MG/0.3 ML SYRINGE SC SCH (15:00)
[2018-11-28] MEDS ORDERED: Enoxaparin Sodium 100 MG/ML SYRINGE SC SCH (15:00)
--- NOTE | 2018-11-28 16:24 | CON ---
DATE OF CONSULTATION: 11/28/2018 REASON FOR CONSULTATION: Atrial fibrillation with rapid ventricular response. HISTORY OF PRESENT ILLNESS: Mr. Avina is a very pleasant 68-year-old gentleman, who recently presented with atrial fibrillation with rapid ventricular response. He recently underwent bypass surgery. He did have one episode postoperatively, this converted to sinus rhythm. PHYSICAL EXAMINATION: VITAL SIGNS: Blood pressure 130/70, pulse 80, and respirations are 20. PERTINENT LABORATORY DATA: Hemoglobin 15.2 and creatinine 1.09. IMPRESSION: 1. New onset atrial fibrillation. 2. Coronary artery disease, status post bypass surgery. RECOMMENDATIONS: 1. Add p.o. Cardizem to IV Cardizem and titrate down IV Cardizem as heart rate allows. 2. Add digoxin. 3. Add abciximab. The patient does have a history of ulcerative colitis. I did warn him of the risks of bleeding, but without anticoagulation therapy, he has a risk of stroke. He understands the risks and at this point, benefits seem to outweigh the risks. Further recommendations pending the above. Job ID: [id number]
[2018-11-28 16:56] LABS: CKMB 1.9 ng/mL (0-6.6)
[2018-11-28] MEDS: Diltiazem HCl SR 60 mg Capsule PO SCH ×2 (18:15→23:49)
--- NOTE | 2018-11-28 20:32 | PDOC.EVN ---
Event Note - Event Note Event Note: Patient discussed with SANDRA Tsang. Patient examined. Feels well now. Has modest cough and denies any chest pain. Heart is irreg. Lungs are clear. A fib with RVR. Stable on IV Cardizem after dose of Dig given in the ED. Dr. Wilkes has seen him already. Starting po CCB and Eliquis.
[2018-11-28] MEDS ORDERED: Finasteride 5 MG TAB PO SCH (21:00)
[2018-11-28] MEDS ORDERED: Pravastatin Sodium 20 MG TAB PO SCH (21:00)
--- NOTE | 2018-11-28 21:45 | HP ---
PRIMARY CARE PHYSICIAN: Dr. Dmitri Craft. CHIEF COMPLAINT: Chest pain, palpitations. HISTORY OF PRESENT ILLNESS: Mr. Avina is a 68-year-old man with past medical history of hypertension; dyslipidemia; coronary artery disease status post CABG last week, 11/19/[address] Rodríguez, who had presented to [facility] earlier today after he experienced some chest pain, palpitations, diaphoresis, and nausea along with some lightheadedness. He was found to be in AFib with RVR, he was treated with 2 separate boluses of Cardizem 10 mg each and a bolus of digoxin and was placed on a Cardizem drip, which was titrated up to a 50 mg an hour, he had originally presented with rates in the 150s. However, these improved in the mid 70s after being placed on the Cardizem drip. Blood pressure and other vital signs remained stable. His symptoms of chest pain and palpitations resolved. The patient's primary editor continuity and script is Dr. Wilkes in which he had an outpatient cardiac catheterization on 11/18/2018, which found coronary artery disease. After his bypass surgery, the patient had gone into postsurgical AFib last week, which was treated with amiodarone and his home dose of atenolol was increased and he was stable in sinus rhythm thereafter, he was later discharged over the weekend on 11/23/2018, to follow up with his PCP, Dr. Wilkes, and Dr. Rodríguez. Currently, he is lying comfortably in bed with his family at bedside and he denied any fever, chills, any headache, blurred vision, dizziness, chest pain, palpitations, shortness of breath, abdominal pain, nausea, vomiting, or any change in his stool, he was later transferred up to the floor and Dr. Wilkes was called and made aware of the patient and he had remained on a Cardizem drip at this time. REVIEW OF SYSTEMS: All other systems reviewed and found to be negative unless mentioned in HPI. PAST MEDICAL HISTORY: Hypertension, dyslipidemia, coronary artery disease, ulcerative colitis, osteoarthritis. PAST SURGICAL HISTORY: Cardiac catheterization, coronary artery bypass graft x3 vessel, appendectomy, and cholecystectomy. PSYCHIATRIC HISTORY: None. SOCIAL HISTORY: Patient denies alcohol, tobacco, or illicit drug use. KNOWN ALLERGIES: Penicillin. CURRENT HOME MEDICATIONS: 1. Aspirin 325 mg oral daily. 2. Hydrocodone 5 mg/325 mg 1-2 tablets every 4 hours as needed for pain. 3. Potassium 99 mg oral daily. 4. Cetirizine 10 mg oral daily. 5. Multivitamin 1 tab oral daily. 6. Prednisone 10 mg oral daily as needed for arthritis. 7. Triamcinolone nasal spray as needed for allergies. 8. Sulfasalazine 500 mg oral twice daily. 9. Spironolactone/hydrochlorothiazide 25/25 one tab oral daily. 10. Pravastatin 20 mg oral every evening. 11. Levothyroxine 175 mcg oral daily. 12. Atenolol 25 mg oral every evening. 13. Finasteride 5 mg oral at bedtime. 14. Clonazepam 0.5 mg oral as needed for anxiety. PHYSICAL EXAMINATION: VITAL SIGNS: Blood pressure 138/63, pulse 75, respirations 17, temp 98, O2 saturation 98% on room air. GENERAL: The patient is awake, alert, and oriented x3. He is currently lying comfortably in bed and in no acute distress. His family is at bedside. HEENT: Atraumatic, normocephalic. Pupils are round and reactive to light. Extraocular muscles intact. Moist mucous membranes noted. NECK: Soft and supple. Trachea midline. CARDIOVASCULAR: Positive S1 and S2. Regular rate and rhythm. No murmur auscultated. Surgical scar is well healing with no signs of erythema or infection noted of his anterior chest. RESPIRATORY: Clear to auscultation bilaterally. No wheezes, rales, or rhonchi. ABDOMEN: Soft, nontender. Bowel sounds present. MUSCULOSKELETAL: Strength 5+ bilaterally upper and lower extremities. Moves all extremities equal. No edema noted. NEUROLOGIC: Cranial nerves 2 through 12 grossly intact. No focal deficits noted. Speech intact and normal. Gait not assessed. SKIN: Warm, dry, and intact. No rashes. No ulceration noted. Surgical scar as above, is healing well. PSYCHIATRIC: Good mood and affect. LABORATORY DATA: WBC 9.8, RBC 4.54, hemoglobin 15.2, hematocrit 44.6, platelet 283. Sodium 135, potassium 4.9, anion gap 17, BUN 13, creatinine 1.09, estimated GFR 67, glucose 123. CK-MB 1.3, troponin 0.111 and 0.098, BNP 149.2. DIAGNOSTIC IMAGING: Portable chest x-ray showed no evidence of acute cardiopulmonary process. ASSESSMENT AND PLAN: 1. Atrial fibrillation with rapid ventricular response. He is currently in sinus rhythm on the monitor. We will keep him on diltiazem drip at 15 mg an hour and titrate as needed. A consult was placed for Dr. Wilkes, his primary editor continuity and script and we will await further recommendations. 2. History of coronary artery disease status post coronary artery bypass grafting. He will be resumed on his home regimen, and currently stable at this time. His troponin was slightly elevated at 0.111, however, this is starting to trend down at 0.098 and he is currently asymptomatic at this time. This is likely due to his recent bypass surgery. 3. Hypertension, currently stable. Monitor blood pressure and other vital signs closely. 4. Dyslipidemia. Continue home statin. 5. History of ulcerative colitis, currently stable at this time. 6. Deep venous thrombosis and gastrointestinal prophylaxis. 7. Code status is full code. 8. Surrogate decision maker is his , Phil. DISPOSITION: Pending further workup and clinical findings, the patient will likely be discharged home in the next 1 to 2 days once he is stable from a cardiological standpoint. Job ID: [id number]
[2018-11-29 05:08] LABS: #Basophils 0.1 thou/uL (0.0-0.2); #Eosinphils 0.2 thou/uL (0.0-0.7); #Lymphocytes 2.4 thou/uL (1.20-3.40); #Monocytes 1.1 thou/uL (0.11-0.59); #Neutrophils 4.9 thou/uL (1.40-6.50); %Basophils 0.8 % (0.0-1.0); %Eosinophils 1.8 % (0.0-10.0); %Lymphocytes 28.1 % (21.0-51.0); %Monocytes 12.3 % (0.0-10.0); Hemoglobin 13.6 g/dL (14.0-18.0); Mean Corpuscular HGB CONC 36.9 g/dL (32.0-36.0); Mean Corpuscular Hemoglobin 36.3 pg (27.0-31.0); Mean Corpuscular Volume 98.4 fL (78.0-98.0); Mean Platelet Volume 7.6 fL (7.4-10.4); Platelet Count 232 thou/uL (130-400); RBC Distribution Width 11.9 % (11.5-14.5); Red Blood Cell (RBC) Count 3.74 mill/uL (4.70-6.10); White Blood Cell (WBC) Count 8.6 thou/uL (4.8-10.8)
[2018-11-29] MEDS: Diltiazem HCl SR 60 mg Capsule PO SCH ×2 (05:09→11:24)
[2018-11-29 05:28] LABS: Anion Gap 13 mmol/L (10-20); BUN (Urea Nitrogen) 13 mg/dL (8.4-25.7); Calc. Creatinine Clearance 141 mL/min (70-130); Calcium 9.1 mg/dL (7.8-10.44); Carbon Dioxide 22 mmol/L (23-31); Chloride 105 mmol/L (98-107); Estimated GFR-MDRD 84; Glucose 109 mg/dL (80-115); Potassium 3.5 mmol/L (3.5-5.1); Sodium 136 mmol/L (136-145)
[2018-11-29] MEDS ORDERED: Levothyroxine 175 MCG TAB PO SCH (06:00)
[2018-11-29] MEDS ORDERED: Apixaban 5 MG TAB PO SCH (09:00)
[2018-11-29] MEDS ORDERED: Aspirin 325 mg Enteric Coated Tablet PO SCH (09:00)
[2018-11-29] MEDS ORDERED: Enoxaparin Sodium 40 MG/0.4 ML SYRINGE SC SCH (09:00)
[2018-11-29] MEDS ORDERED: Diabetic Tussin 200 MG/10 ML UDCUP PO PRN (09:50)
[2018-11-29 11:44] VITALS: BP 167/72; TEMP 97.8
--- NOTE | 2018-11-29 14:34 | DIS ---
DATE OF ADMISSION: 11/28/2018 DATE OF DISCHARGE: 11/29/2018 DISCHARGE DISPOSITION: Home. FOLLOWUP: 1. Follow up with primary care physician, Dr. Dmitri Craft, in 1 week. 2. Follow up with Dr. Wilkes in 1 to 2 weeks. The patient was seen on the day of discharge. Denies any new complaints. No chest pain, shortness of breath, or palpitations. DISCHARGE MEDICATIONS: 1. Eliquis 5 mg b.i.d. 2. Aspirin was changed to 81 mg daily. 3. Cardizem sustained release 60 mg 3 times daily. 4. All other home medications were left unchanged. DISCHARGE INSTRUCTIONS: The patient was advised to monitor his blood pressure on a daily basis. INPATIENT FIRE CONTROL TECHNICIAN B: Cardiology, Dr. Wilkes. VITAL SIGNS: Vital signs on the day of discharge; temperature 98.2, pulse rate of 73, blood pressure is 143/70 with O2 saturation 96% on room air. BRIEF HOSPITAL COURSE: The patient is a 68-year-old male with hypertension and coronary artery disease, status post CABG, presented to the emergency room with chest pain and palpitations. His workup was consistent with atrial fibrillation with rapid ventricular response. He was started on Cardizem drip. He was evaluated by Cardiology. He has been started on Cardizem orally. Aspirin dose was reduced to 81 mg daily while on anticoagulation. He understands the risks associated with anticoagulation. Plan of care was discussed with the patient in detail and he stated understanding. FINAL DIAGNOSES: 1. Atrial fibrillation with rapid ventricular response. 2. Coronary artery disease, status post recent coronary artery bypass grafting. 3. Hypertension. 4. Dyslipidemia. 5. History of ulcerative colitis. 6. Type 2 myocardial infarction. 7. Chronic kidney disease, stage 2. 8. Mild hyponatremia. 9. Chronic anemia. 10. Degenerative joint disease. PLAN: Plan of care was discussed with the patient and the family in detail, they stated understanding. Job ID: [id number]
--- NOTE | 2018-12-01 03:16 | EKG ---
Test Reason : Blood Pressure : / mmHG Vent. Rate : 131 BPM Atrial Rate : 127 BPM P-R Int : 000 ms QRS Dur : 090 ms QT Int : 300 ms P-R-T Axes : 000 066 -52 degrees QTc Int : 443 ms Atrial fibrillation with rapid ventricular response with premature ventricular or aberrantly conducte d complexes Possible Inferior infarct , age undetermined Abnormal ECG Confirmed by JAZIEL CARRENO DO ([id number]), publishing editor ALEXIA CRISTOBAL ([id number]) on 12/01/2018 3:15:22 AM Referred By: Confirmed By:JAZIEL CARRENO DO
== END 2018-11-29 13:01 | disposition home or self-care (01) ==
LOC: ERS 06:53 → ERHOLD 12:17 → 2SW 13:44
PROVIDERS: ADMIT Internal Medicine; ATTEND Internal Medicine
DX: I48.91 Unspecified atrial fibrillation (principal); I25.10 Atherosclerotic heart disease of native coronary artery without angina pectoris; I12.9 Hypertensive chronic kidney disease with stage 1 through stage 4 chronic kidney disease, or unspecified chronic kidney disease; N18.2 Chronic kidney disease, stage 2 (mild); D63.1 Anemia in chronic kidney disease; E78.5 Hyperlipidemia, unspecified; I25.2 Old myocardial infarction; E87.1 Hypo-osmolality and hyponatremia; M19.90 Unspecified osteoarthritis, unspecified site; Z79.2 Long term (current) use of antibiotics; Z79.82 Long term (current) use of aspirin; Z79.899 Other long term (current) drug therapy; Z88.0 Allergy status to penicillin; Z95.1 Presence of aortocoronary bypass graft
CPT/HCPCS: 71045; 80048; 80053; 82550; 82553; 83880; 84484 ×2; 85025 ×2; 93005; 96365; 96366 ×2; 96372; 96375; 96376; 99285; G0378 ×3; 36415; J1160; J1650; J3490

== ENCOUNTER 2018-12-05 12:39 | Outpatient (CLI) | payer MEDICARE ==
--- NOTE | 2018-12-05 12:54 | RAD ---
XR Chest Pa Lat STANDARD HISTORY: Shortness of breath. COMPARISON: 07/18/2018 exam also review of a 11/28/2018 study. FINDINGS: Heart size is enlarged. There are postop sternotomy changes. Pulmonary vessels are not engo rged and no signs of interstitial edema. There has been development of a left-sided pleural effusion with atelectasis versus infiltrate. IMPRESSION: 1. Cardiomegaly. 2. Development of a left-sided pleural effusion with left lower lobe atelectasis versus infiltrate.
== END 2018-12-05 12:40 | disposition home or self-care (01) ==
LOC: BICRAD 12:39
PROVIDERS: ATTEND Physician Assistant
DX: I25.10 Atherosclerotic heart disease of native coronary artery without angina pectoris (principal); I51.7 Cardiomegaly; J90 Pleural effusion, not elsewhere classified
CPT/HCPCS: 71046

== ENCOUNTER 2018-12-12 13:40 | Outpatient (CLI) | payer MEDICARE ==
--- NOTE | 2018-12-12 14:41 | RAD ---
PA AND LATERAL CHEST: Date: 12/12/18 HISTORY: Atherosclerosis of coronary arteries. COMPARISON: 12/05/18 study. FINDINGS: Heart size is enlarged with postop sternotomy changes. Left-sided pleural changes appear slightly imp roved as compared to that prior exam. Right lung remains clear. IMPRESSION: Slight improvement to the left lower lobe atelectasis and pleural effusion change. POS: [facility]
== END 2018-12-12 13:41 | disposition home or self-care (01) ==
LOC: RAD 13:40
PROVIDERS: ATTEND Thoracic Surgery (Cardiothoracic Vascular Surgery)
DX: I25.118 Atherosclerotic heart disease of native coronary artery with other forms of angina pectoris (principal); J90 Pleural effusion, not elsewhere classified; J98.11 Atelectasis
CPT/HCPCS: 71046

== ENCOUNTER 2020-01-23 10:53 | Day surgery (SDC) | payer MEDICARE ==
[~2020-01-23 10:53] MED LIST: SODIUM CHLORIDE 0.9% IV SCH; USTEKINUMAB IV SCH
[2020-01-23] MEDS ORDERED: Sodium Chloride 0.9% 20 ML ONE (10:57)
[2020-01-23 11:22] VITALS: BP 144/70; TEMP 98.6
== END 2020-01-23 12:56 | disposition home or self-care (01) ==
LOC: ONC/OP 10:53
PROVIDERS: ATTEND Internal Medicine
DX: K51.90 Ulcerative colitis, unspecified, without complications (principal); Z88.0 Allergy status to penicillin
CPT/HCPCS: 96413; J3358; J7050

== ENCOUNTER 2022-02-28 05:45 | Day surgery (SDC) | payer MEDICARE ==
[2022-02-27 09:43] VITALS: BMI 35.2
[2022-02-28] MEDS ORDERED: Nitroglycerin 100MG/250ML BOT 250 ML ONE (06:27)
[2022-02-28] MEDS ORDERED: Lidocaine 1% (PF) 30 ML VIAL ONE (06:27)
[2022-02-28] MEDS ORDERED: Midazolam HCl 2 mg/2 ml Vial ONE (07:17)
[2022-02-28] MEDS ORDERED: FENTANYL 50 MCG/ML 1 ML VIAL ONE (07:17)
== END 2022-02-28 13:05 | disposition home or self-care (01) ==
LOC: SDC 05:45
PROVIDERS: ATTEND Internal Medicine Cardiovascular Disease
PROC: 4A023N7 Measurement of Cardiac Sampling and Pressure, Left Heart, Percutaneous Approach (ICD-10-PCS; principal; 2022-02-28)
PROC: B2111ZZ Fluoroscopy of Multiple Coronary Arteries using Low Osmolar Contrast (ICD-10-PCS; 2022-02-28)
PROC: B2181ZZ Fluoroscopy of Left Internal Mammary Bypass Graft using Low Osmolar Contrast (ICD-10-PCS; 2022-02-28)
PROC: B2131ZZ Fluoroscopy of Multiple Coronary Artery Bypass Grafts using Low Osmolar Contrast (ICD-10-PCS; 2022-02-28)
DX: I25.119 Atherosclerotic heart disease of native coronary artery with unspecified angina pectoris (principal); I25.84 Coronary atherosclerosis due to calcified coronary lesion; I48.0 Paroxysmal atrial fibrillation; E83.119 Hemochromatosis, unspecified; E78.5 Hyperlipidemia, unspecified; M19.90 Unspecified osteoarthritis, unspecified site; G47.33 Obstructive sleep apnea (adult) (pediatric); Z86.16 Personal history of COVID-19; Z87.891 Personal history of nicotine dependence; Z79.620 Long term (current) use of immunosuppressive biologic; Z79.85 Long-term (current) use of injectable non-insulin antidiabetic drugs; Z79.890 Hormone replacement therapy; Z79.899 Other long term (current) drug therapy; Z88.0 Allergy status to penicillin; Z95.1 Presence of aortocoronary bypass graft
CPT/HCPCS: C1769 ×2; J3010; 93459; 99152; 99153; J2001; J2250

== ENCOUNTER 2022-03-07 13:46 | Outpatient (CLI) | payer MEDICARE ==
[2022-03-07 16:10] LABS: Hemoglobin 15.3 g/dL (13.5-17.5); Mean Corpuscular HGB CONC 34.2 g/dL (32.0-36.0); Mean Corpuscular Hemoglobin 28.5 pg (27.0-33.0); Mean Corpuscular Volume 83.2 fl (81.2-95.1); Mean Platelet Volume 10.8 fl (7.4-10.4); Platelet Count 259 10x3/uL (150-450); RBC Distribution Width 14.2 % (11.5-14.5); Red Blood Cell (RBC) Count 5.37 10x6/uL (4.32-5.72); White Blood Cell (WBC) Count 7.6 10x3/uL (3.5-10.5)
== END 2022-03-07 13:47 | disposition home or self-care (01) ==
LOC: LABBT 13:46
PROVIDERS: ATTEND Internal Medicine Cardiovascular Disease
DX: Z01.812 Encounter for preprocedural laboratory examination (principal)
CPT/HCPCS: 85027

== ENCOUNTER 2022-03-08 05:48 | Day surgery (SDC) | payer MEDICARE ==
[2022-03-07 13:07] VITALS: BMI 35.2
[2022-03-08] MEDS ORDERED: Verapamil 5 MG/2 ML VIAL ONE (06:19)
[2022-03-08] MEDS ORDERED: Nitroglycerin 100MG/250ML BOT 250 ML ONE (06:19)
[2022-03-08] MEDS ORDERED: Lidocaine 1% (PF) 30 ML VIAL ONE (06:21)
[2022-03-08] MEDS ORDERED: Heparin 10,000 UNITS/ 10 ML VIAL ONE ×2 (06:23→07:57)
[2022-03-08] MEDS ORDERED: Midazolam HCl 2 mg/2 ml Vial ONE (06:53)
[2022-03-08] MEDS ORDERED: FENTANYL 50 MCG/ML 1 ML VIAL ONE (06:54)
[2022-03-08] MEDS ORDERED: Iopamidol 370 76% 100 ML VIAL ONE (14:51)
== END 2022-03-08 16:40 | disposition home or self-care (01) ==
LOC: CCL 05:48
PROVIDERS: ATTEND Internal Medicine Cardiovascular Disease
PROC: 4A023N8 Measurement of Cardiac Sampling and Pressure, Bilateral, Percutaneous Approach (ICD-10-PCS; principal; 2022-03-08)
PROC: B2111ZZ Fluoroscopy of Multiple Coronary Arteries using Low Osmolar Contrast (ICD-10-PCS; 2022-03-08)
DX: I25.10 Atherosclerotic heart disease of native coronary artery without angina pectoris (principal); I48.0 Paroxysmal atrial fibrillation; E83.119 Hemochromatosis, unspecified; E78.5 Hyperlipidemia, unspecified; M19.90 Unspecified osteoarthritis, unspecified site; G47.33 Obstructive sleep apnea (adult) (pediatric); Z86.16 Personal history of COVID-19; Z87.891 Personal history of nicotine dependence; Z79.85 Long-term (current) use of injectable non-insulin antidiabetic drugs; Z79.890 Hormone replacement therapy; Z79.899 Other long term (current) drug therapy; Z88.0 Allergy status to penicillin; Z95.1 Presence of aortocoronary bypass graft
CPT/HCPCS: 85347; 92920; 93454; 99152; 99153; C1725; C1769; C1887; C1894; J1644; J2001; J2250; J3010; Q9967